=== PATIENT | female | born 1930 | race Caucasian/White ===

== ENCOUNTER 2017-08-15 14:58 | Emergency (ER) | payer OTHER ==
[~2017-08-15] VITALS: Ht 154.9 cm; Wt 68.0 kg
[~2017-08-15 14:58] MED LIST: ALEN10 PO; ATEN50 PO; CARV25 PO; LOVA40 PO; NAPR500 PO; Prinivil10 MG PO
[2017-08-15] MEDS ORDERED: Norco 5-325 Ta1 EACH PO (17:07)
== END 2017-08-15 17:31 | disposition home or self-care (01) ==
LOC: ER 14:58
DX: S42.202A Unspecified fracture of upper end of left humerus, initial encounter for closed fracture (principal); I10 Essential (primary) hypertension; Z88.0 Allergy status to penicillin; Z79.899 Other long term (current) drug therapy; Z87.891 Personal history of nicotine dependence; W01.0XXA Fall on same level from slipping, tripping and stumbling without subsequent striking against object, initial encounter
CPT/HCPCS: 73030; 73200; 99284

== ENCOUNTER 2020-03-18 15:58 | Inpatient (IN) | payer OTHER ==
[~2020-03-18] VITALS: Ht 162.6 cm; Wt 72.4 kg
[~2020-03-18 15:58] MED LIST changes: +Norco 5-325 Ta1 EACH PO
[2020-03-18 16:27] LABS: BASOPHILS ABSOLUTE AUTO 0.04 K/mm3 (0.00-0.23); BASOPHILS PERCENT AUTO 1 % (0-2); EOSINOPHILS ABSOLUTE AUTO 0.09 K/mm3 (0.00-0.68); EOSINOPHILS PERCENT AUTO 1 % (0-6); Hematocrit 35.4 % (33.0-51.0); Hemoglobin 11.8 g/dL (11.5-16.0); IMMATURE GRAN ABSOLUTE AUTO 0.01 K/mm3 (0.00-0.10); IMMATURE GRAN PERCENT AUTO 0 % (0-1); LYMPHOCYTES PERCENT AUTO 34 % (21-46); MONOCYTES ABSOLUTE AUTO 0.55 K/mm3 (0.16-1.47); MONOCYTES PERCENT AUTO 7 % (4-13); Mean Corpuscular HGB 32.1 pg (26.0-34.0); Mean Corpuscular HGB Conc 33.3 g/dL (31.5-36.5); Mean Corpuscular Volume 96 fL (80-100); Mean Platelet Volume 8.9 fL (9.1-12.4); NEUTROPHILS ABSOLUTE AUTO 4.39 K/mm3 (1.96-9.15); NEUTROPHILS PERCENT AUTO 57 % (41-73); Platelet Count 234 K/mm3 (150-400); RDW Coefficient Variation 12.1 % (11.7-14.2); RDW Standard Deviation 43.1 fL (35.1-46.3); Red Blood Cell Count 3.68 M/mm3 (3.80-5.20); White Blood Cell Count 7.68 K/mm3 (4.00-11.30)
[2020-03-18 16:46] LABS: Alanine Aminotransfer (ALT/SGP 17 U/L (12-78); Albumin, Blood 3.8 g/dL (3.4-5.0); Albumin/Globulin Ratio 0.9 (0.8-1.8); Alk Phos 89 U/L (50-136); Anion Gap 8 mmol/L (6-16); Aspartate Aminotrans (AST/SGOT 26 U/L (12-37); Bilirubin, Total 0.6 mg/dL (0.1-1.0); Blood Urea Nitrogen 24 mg/dL (8-24); Bun/Creatinine Ratio 24.1 (12.0-20.0); CO2, Blood 27 mmol/L (21-32); Calcium, Blood 9.4 mg/dL (8.5-10.1); Chloride, Blood 102 mmol/L (98-108); Creatinine, Blood 0.99 mg/dL (0.40-1.00); Globulin, Blood 4.1 g/dL (2.2-4.0); Glomerular Filtration Rate 56 (60-); Glucose, Blood 103 mg/dL (70-99); Potassium, Blood 3.9 mmol/L (3.5-5.5); Sodium, Blood 137 mmol/L (136-145); Total Protein, Blood 7.9 g/dL (6.4-8.2); Troponin I <0.015 ng/mL (0.000-0.040)
[2020-03-18] MEDS ORDERED: ATEN50 PO (21:53)
[2020-03-18 22:24] LABS: Source, Urine Catheter
[2020-03-18 22:31] LABS: Bilirubin, Urine Neg (Neg); Blood, Urine 2+ (Neg); Glucose Qualitative, Urine Neg (Neg); Ketones, Urine Neg (Neg); Leukocyte Esterase, Urine 3+ (Neg); Nitrite, Urine Pos (Neg); Protein, Urine 1+ (Neg); Urobilinogen, Urine NORM (Normal)
[2020-03-18 22:36] LABS: Appearance, Urine Clear (Clear); Color, Urine Yellow (P-Yellow)
[2020-03-18 22:37] LABS: Bacteria Few /hpf; Red Blood Cells, Urine Rare /hpf (0-2); Squamous Epithelial Cells Rare /hpf (Few)
--- NOTE | 2020-03-18 23:05 | NUR ---
ARRIVAL TO ICU 2129 - PT ARRIVED AT THIS TIME. SHE IS A/O X 3, CALM AND COOPERATIVE. UPON ARRIVAL, SHE COMPLAINED OF SUDDEN ONSET OF SHARP CHEST PAIN ALONG WITH THE SUDDEN URGE TO URINATE. EKG WAS OBTAINED AT ARRIVAL AND PT PLACED ON THE BEDPAN. SOON SHE FINISHED VOIDING, SHE STATED HER CHEST PAIN WAS RELIEVED. BP 160S/60-70S AT ARRIVAL. NICARDIPINE GTT CONTINUED INFUSING AT 5 MG/HR. BP TRENDED DOWN DURING ADMISSION PROCESS. NICARDIPINE GTT OFF AT 2219. PT DID TAKE HER EVENING DOSE OF CARVEDILOL. AFEBRILE. DNR BANDS SECURED ON ARM. NSR, HR 70-80S. RAMIREZ CATHETER INSERTED AT ARRIVAL PT WAS HAVING EPISODES OF ELEVATED BP AND CHEST PAIN EACH TIME SHE WOULD GET OUT OF BED PER ED. UA SENT TO LAB WITH INSERTION. WILL MONITOR BP CLOSELY.
--- NOTE | 2020-03-18 23:53 | NUR ---
RAPID CHANGE IN BP AND MENTATION 2315 - UPON ENTERING ROOM TO EVALUATE DECREASE IN BP, PT ASKED TO BE PLACED ON BEDPAN SHE HAD TO HAVE A BM. SHE WAS PLACED ON BEDPAN AND SUDDENLY BECAME APNEIC, UNRESPONSIVE AND PALE. BP 40S/30S. ZOE CALLED WITH UPDATE. VERBAL ORDER TO ADMINISTER NS 1L WIDE OPEN WITH PRESSURE BAG AND START LEVOPHED GTT PERIPHERALLY. SCDS APPLIED TO BILATERAL LOWER LEGS PER MD REQUEST. 2340 - LEVOPHED GTT STARTED IN LFA AND TITRATED HIGH 10 MCG. 2355 - H/H, RENAL PANEL, AND MAGNESIUM LABS OBTAINED. TOTAL EPISODE OF DECREASED RESPONSIVENESS AND LOW BP LASTED APPROX 20 MINUTES. PT NOW AWAKE, ALERT, ANSWERING QUESTIONS APPROPRIATELY. FAST EXAM NEGATIVE. WILL TITRATE LEVOPHED GTT DOWN ABLE.
[2020-03-19 00:02] LABS: Hematocrit 31.3 % (33.0-51.0); Hemoglobin 10.2 g/dL (11.5-16.0)
[2020-03-19 00:19] LABS: Anion Gap 5 mmol/L (6-16); Blood Urea Nitrogen 23 mg/dL (8-24); Bun/Creatinine Ratio 23.9 (12.0-20.0); CO2, Blood 27 mmol/L (21-32); Calcium, Blood 8.3 mg/dL (8.5-10.1); Chloride, Blood 109 mmol/L (98-108); Creatinine, Blood 0.96 mg/dL (0.40-1.00); Glomerular Filtration Rate 58 (60-); Glucose, Blood 117 mg/dL (70-99); Magnesium, Blood 1.7 mg/dL (1.6-2.4); Phosphorus, Blood 3.1 mg/dL (2.5-4.9); Potassium, Blood 3.8 mmol/L (3.5-5.5); Sodium, Blood 141 mmol/L (136-145)
[2020-03-19 01:06] LABS: Troponin I 0.419 ng/mL (0.000-0.040)
--- NOTE | 2020-03-19 04:37 | NUR ---
REASSESSMENT PT SLEEPING BUT EASILY AROUSES. LEVOPHED GTT REMAINS BETWEEN 2-3. MIV NS INFUSION STARTED AT 100 ML/HR PER ORDER. AFEBRILE. REMAINS IN NSR, HR 60-70S. WILL CONTINUE TO MONITOR.
--- NOTE | 2020-03-19 05:44 | NUR ---
SHIFT SUMMARY PT ADMITTED TO ICU FROM ED AT 0. ARRIVED WITH NICARDIPINE GTT, WHICH INFUSED AT 5 MG/HR UNTIL AROUND 2220, WHEN SBP WAS 130S. DISCONTINUED AT THIS TIME. PT DID RECEIVE HER HOME MEDICATION COREG. HAS SLEPT OFF/ON DURING SHIFT. SEE NOTE REGARDING EPISODE OF LOW BP AND DECREASED RESPONSIVENESS. LEVOPHED GTT STARTED AROUND 2340; TITRATED DOWN TO 2 MCG. LEVOPHED INFUSING PERIPHERALLY IN L ARM; SKIN COLOR REMAINS PINK AND WARM, WITH NO SIGNS OF INFILTRATION. MIV NS INFUSING AT 100 ML/HR. HAS REMAINED IN NSR ENTIRE SHIFT. URINE OUTPUT 600 ML FROM RAMIREZ CATHETER. TROPONIN TRENDING UPWARDS. WILL GIVE BEDSIDE, HANDOFF REPORT TO DAY RN.
[2020-03-19 06:13] LABS: BASOPHILS ABSOLUTE AUTO 0.03 K/mm3 (0.00-0.23); BASOPHILS PERCENT AUTO 0 % (0-2); EOSINOPHILS ABSOLUTE AUTO 0.06 K/mm3 (0.00-0.68); EOSINOPHILS PERCENT AUTO 1 % (0-6); Hemoglobin 10.6 g/dL (11.5-16.0); IMMATURE GRAN ABSOLUTE AUTO 0.02 K/mm3 (0.00-0.10); IMMATURE GRAN PERCENT AUTO 0 % (0-1); LYMPHOCYTES ABSOLUTE AUTO 2.12 K/mm3 (0.84-5.20); LYMPHOCYTES PERCENT AUTO 26 % (21-46); MONOCYTES ABSOLUTE AUTO 0.41 K/mm3 (0.16-1.47); MONOCYTES PERCENT AUTO 5 % (4-13); Mean Corpuscular HGB 32.4 pg (26.0-34.0); Mean Corpuscular HGB Conc 33.1 g/dL (31.5-36.5); Mean Corpuscular Volume 98 fL (80-100); NEUTROPHILS PERCENT AUTO 68 % (41-73); Platelet Count 204 K/mm3 (150-400); RDW Coefficient Variation 12.1 % (11.7-14.2); RDW Standard Deviation 43.8 fL (35.1-46.3); Red Blood Cell Count 3.27 M/mm3 (3.80-5.20); White Blood Cell Count 8.14 K/mm3 (4.00-11.30)
[2020-03-19 06:38] LABS: Bun/Creatinine Ratio 24.6 (12.0-20.0); Calcium, Blood 8.3 mg/dL (8.5-10.1); Creatinine, Blood 0.97 mg/dL (0.40-1.00); Potassium, Blood 4.2 mmol/L (3.5-5.5); Troponin I 0.334 ng/mL (0.000-0.040)
--- NOTE | 2020-03-19 11:30 | NUR ---
PT RESTING IN BED. HAS BEEN OFF LEVOPHED SINCE EARLIER THIS AM. PT IS A/O X4. DENIES PAIN, CP, OR PRESSURE. NO N/V. GOOD APPETITE. PT IS WANTING TO GO HOME. EDUCATED THAT THE PLAN OF CARE IS TO WATCH HER FOR ANOTHER NIGHT. NO SIGN OF DISTRESS. CALL LIGHT IN REACH AND PT USES APPROPRIATELY.
--- NOTE | 2020-03-19 14:28 | NUR ---
Echocardiogram completed.
--- NOTE | 2020-03-19 18:14 | NUR ---
Mrs. Love was appreciaitve of prayer and theraputic listening. She spke at length about her history in health care. She feels hopeful for recovery. She is praying that her dtr, woh is battling cancer, will be healed by God. Regulatory Auditor services will remain available.
--- NOTE | 2020-03-19 18:20 | NUR ---
SUMMARY PT RESTING IN BED. HAS BEEN OFF LEVOPHED ALL DAY. NO ISSUES WITH BP AT ALL. WAS MADE MEDICAL STATUS TODAY. EATING WELL. NO SIGN OF DISTRESS.
--- NOTE | 2020-03-19 22:13 | NUR ---
ASSUMED CARE AT 1900 PT SITTING UP IN CHAIR INTERACTING WITH STAFF. PT A&O X4. NS INFUSING. VS STABLE. SEE SHIFT ASSESSMENT FOR FULL ASSESSMENT.
--- NOTE | 2020-03-19 22:15 | NUR ---
AT 2105 GAVE REPORT TO MEDICAL FLOOR RN DUE TO PT BEING TRANSFERED TO ROOM 336.
--- NOTE | 2020-03-20 00:55 | NUR ---
PT WOKE EARLIER THIS EVENING, APPEARS TO BE SLIGHTLY CONFUSED. REFUSING TO LET STAFF CHECK HER VITAL SIGNS OR PUT HER TELEMETRY ON. CALLING STAFF "NINCOMPOOPS" AND STATING THAT SHE JUST WANTS TO SLEEP. CONTINUALLY TELLING STAFF TO GET OUT OF HER ROOM. LAST BLOOD PRESSURE WAS 173/84 WITH A HEART RATE OF [address] ENRIQUEZ WHO STATED TO DOCUMENT THE REFUSAL AND CONTINUE TO ATTEMPT TO GET PT'S VITALS SHE WILL ALLOW.
--- NOTE | 2020-03-20 05:07 | NUR ---
SHIFT SUMMARY PT PLEASANT AND COOPERATIVE AFTER TRANSFER FROM ICU. PT SLEPT FOR A SHORT WHILE AFTER AND UPON WAKING UP APPEARED MORE CONFUSED. WOULD NOT ANSWER ANY ORIENTATION QUESTIONS, WOULD ONLY REPLY BY CALLING THE STAFF "IDIOTS" OR BY TELLING STAFF TO GET OUT OF HER ROOM SO IT IS UNCLEAR HOW ORIENTED PT ACTUALLY WAS. PT WOULD NOT ALLOW HEART MONITOR TO BE PLACED OR VITAL SIGNS TO BE TAKEN THE REMAINDER OF THE SHIFT. DR. ENRIQUEZ AWARE. RAMIREZ CATHETER PATENT AND DRAINING LIGHT YELLOW URINE. PT HAD A SMALL UNFORMED BROWN BM. DENIED ANY PAIN. PT HYPERTENSIVE WITH SYSTOLIC BP IN THE LOW 170'S AT START OF SHIFT WHEN PT WAS STILL ALLOWING VITALS. DR. ENRIQUEZ AWARE. OTHERWISE VSS. WILL CONTINUE TO MONITOR AND REPORT TO DAY RN.
--- NOTE | 2020-03-20 05:26 | NUR ---
PT REFUSED CARE AND VITALS, SHOWING INCREASED CONFUSION, NURSE NOTIFIED
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
--- NOTE | 2020-03-20 12:25 | NUR ---
DISCHARGE DISCHARGE MEDICATIONS AND INSTRUCTIONS EXPLAINED TO PATIENT AND PATIENT'S DAUGHTER. THEY STATED UNDERSTANDING. LELAND TO CALL PATIENT AT HOME WITH FOLLOW UP APPOINTMENT. IV REMOVED WITHOUT ISSUE. BELONGINGS WITH PATIENT. PATIENT TRANSFERED TO PRIVATE VEHICLE VIA WHEELCHAIR.
== END 2020-03-20 12:16 | disposition home or self-care (01) | DRG 282 ==
LOC: ER 15:58 → ICUW 20:48 → MEDS 03-19 21:41
PROVIDERS: Emergency Medicine; ADMIT Family Medicine
DX: I16.1 Hypertensive emergency (principal); I21.A1 Myocardial infarction type 2; N18.30 Chronic kidney disease, stage 3 unspecified; I12.9 Hypertensive chronic kidney disease with stage 1 through stage 4 chronic kidney disease, or unspecified chronic kidney disease; I45.10 Unspecified right bundle-branch block; Z66 Do not resuscitate; I95.2 Hypotension due to drugs; E78.00 Pure hypercholesterolemia, unspecified
CPT/HCPCS: 36415; 51702; 71046; 80048; 80053; 80069; 81001; 83735; 83880; 84443; 84484; 85014; 85018; 85025; 87077; 87086; 87186; 93005; 93010; 93306; 96365; 99285-25; A9270; A9270-GY; J1644; J7030; J7060

== ENCOUNTER 2020-07-10 05:38 | Inpatient (IN) | payer OTHER ==
[~2020-07-10] VITALS: Ht 162.6 cm; Wt 69.8 kg
[2020-07-10 06:25] LABS: BASOPHILS ABSOLUTE AUTO 0.03 K/mm3 (0.00-0.23); BASOPHILS PERCENT AUTO 0 % (0-2); EOSINOPHILS ABSOLUTE AUTO 0.07 K/mm3 (0.00-0.68); EOSINOPHILS PERCENT AUTO 1 % (0-6); Hematocrit 35.9 % (33.0-51.0); Hemoglobin 11.8 g/dL (11.5-16.0); IMMATURE GRAN ABSOLUTE AUTO 0.02 K/mm3 (0.00-0.10); IMMATURE GRAN PERCENT AUTO 0 % (0-1); LYMPHOCYTES PERCENT AUTO 27 % (21-46); MONOCYTES ABSOLUTE AUTO 0.69 K/mm3 (0.16-1.47); MONOCYTES PERCENT AUTO 7 % (4-13); Mean Corpuscular HGB Conc 32.9 g/dL (31.5-36.5); Mean Corpuscular Volume 97 fL (80-100); Mean Platelet Volume 9.2 fL (9.1-12.4); NEUTROPHILS ABSOLUTE AUTO 6.47 K/mm3 (1.96-9.15); NEUTROPHILS PERCENT AUTO 65 % (41-73); Platelet Count 246 K/mm3 (150-400); RDW Coefficient Variation 12.6 % (11.7-14.2); RDW Standard Deviation 44.8 fL (35.1-46.3); Red Blood Cell Count 3.69 M/mm3 (3.80-5.20); White Blood Cell Count 9.98 K/mm3 (4.00-11.30)
[2020-07-10 06:38] LABS: Albumin, Blood 3.6 g/dL (3.4-5.0); Albumin/Globulin Ratio 0.9 (0.8-1.8); Bilirubin, Total 0.6 mg/dL (0.1-1.0); Bun/Creatinine Ratio 29.7 (12.0-20.0); Creatinine, Blood 0.94 mg/dL (0.40-1.00); Globulin, Blood 4.2 g/dL (2.2-4.0); Potassium, Blood 4.4 mmol/L (3.5-5.5); Total Protein, Blood 7.8 g/dL (6.4-8.2); Troponin I 0.468 ng/mL (0.000-0.040)
--- NOTE | 2020-07-10 09:53 | NUR ---
ECHOCARDIOGRAM COMPLETED
--- NOTE | 2020-07-10 09:55 | NUR ---
INITIAL PAL CARE VISIT - Pt well known to me personally and I saw her on her most recent hospital stay for CP in the Fall. Pt currently denies CP and states she's not sure why she is hear. Nata has long hx of dementia but has done very well and presents very well initially. She lives with her DANYELLE and her estelita in [place]. Her son, Renato arrived and was present for Nata's Dr visits both in the ER and when the wool sorter rounded to offer options and an update on her echocardiogram. I have completed a POLST for Nata in her home in March after her hospital stay but it may have never been signed by her PCP. She cannot remember. She knows she knows me but cannot remember my name. When I ask if she remembers my name, she covers by saying, Yes, you are family. When she later returned home after d/c she told her DANYELLE, Christophe that someone she knew came to visit her but she didn't know who. Pt has long stated she wants conservative tx with no intervention for cardiac or any other issues. She has repeatedly stated she is tired and ready to . She has not been able to manage her medications independently but hasn't allowed others to help. She hoards some and takes a lot at one time, forgets and usually runs out on day 15-20 of a month's supply. Son, Renato will place routine meds in envelopes for her and try to manage that more closely. Her previous POLST stated DNR, comfort measures only and we completed a new one today with signatures obtained. Pt is verbally agreeable today to taking cardiac medications to manage her s/s. She stated to me and Renato that she would not want to return to the hospital with CP again but would want medicines at home to keep her comfortable. When I asked her how things were at home, she stated "not that good since Aldair ". She does remember many things. I recommended that Renato take a copy of pt's POLST to her PCP and notify him that she wants EOL care at home if her heart function declines and she meets hospice criteria and does not want to be treated at the hospital again. She has had a change in her Echocardiogram, which shows new abnormal wall dysfuntion and a drop in her EF from 50% to 30-35% per wool sorter. Assistant Prosecuting Attorney advised Renato and Nata of possible continued decline in Heart function and resulting increased s/s. Nata did not understand the conversation fully but Renato verbalized understanding of the information provided. He is in support of Nata's expressed goals and wishes. Multiple copies of POLST provided to Renato and Nata for family members and providers. Copy sent to medical records also. Pt desires d/d home today and on her last stay had an escalation of dementia s/s and delusions that frightened her occurred overnight. Pt was d/c'd home with family and medications prescribed for 30 days.
[2020-07-10] MEDS ORDERED: ASPI81CH PO (11:44)
[2020-07-10] MEDS ORDERED: CLOP75 (11:45)
--- NOTE | 2020-07-10 13:27 | NUR ---
PT D/C @ 1220 TODAY. PT D/C WITH RX THAT WERE FACED TO [facility] IN [place], PT AND FAMILY ARE AWARE. PT AND FAMILY EXPRESSED UNDERSTANDING OF DC TEACHING AND MEW MEDCIATION INSTRUCTIONS. PT DENIES FURHTER NEEDS
== END 2020-07-10 12:20 | disposition home or self-care (01) | DRG 280 ==
LOC: ER 05:38 → PCU 07:51
PROVIDERS: Emergency Medicine; ADMIT Internal Medicine
DX: I21.4 Non-ST elevation (NSTEMI) myocardial infarction (principal); I50.21 Acute systolic (congestive) heart failure; I13.0 Hypertensive heart and chronic kidney disease with heart failure and stage 1 through stage 4 chronic kidney disease, or unspecified chronic kidney disease; E78.5 Hyperlipidemia, unspecified; N18.30 Chronic kidney disease, stage 3 unspecified; Z79.82 Long term (current) use of aspirin; Z51.5 Encounter for palliative care; F03.90 Unspecified dementia, unspecified severity, without behavioral disturbance, psychotic disturbance, mood disturbance, and anxiety; Z79.01 Long term (current) use of anticoagulants; Z66 Do not resuscitate
CPT/HCPCS: 71045; 80053; 83735; 83880; 84484; 85025; 85730; 93005; 93010; 93308; 93321; 96374; 99285-25; A9270; J1644

== ENCOUNTER 2020-07-22 14:19 | Emergency (ER) | payer OTHER ==
[~2020-07-22] VITALS: Ht 167.6 cm; Wt 72.6 kg
[~2020-07-22 14:19] MED LIST changes: +ASPI81CH PO; +CLOP75
== END 2020-07-22 17:15 | disposition home or self-care (01) ==
LOC: ER 14:19
DX: Z51.5 Encounter for palliative care (principal); R41.82 Altered mental status, unspecified; Z72.3 Lack of physical exercise; I25.2 Old myocardial infarction; I10 Essential (primary) hypertension; Z79.82 Long term (current) use of aspirin; Z79.02 Long term (current) use of antithrombotics/antiplatelets; Z88.0 Allergy status to penicillin
CPT/HCPCS: 99282